=== PATIENT | female | born 1975 | race Two or more races ===

== ENCOUNTER 2019-01-13 12:51 | Outpatient (CLI) | payer OTHER ==
[~2019-01-13 12:51] MED LIST: RELPAX20 MG PO
== END 2019-01-13 13:02 | disposition home or self-care (01) ==
LOC: RAD 12:51
DX: M25.561 Pain in right knee (principal); M25.562 Pain in left knee

== ENCOUNTER → 2019-04-04 | Day surgery (SDC) | payer OTHER ==
[~2019-04-04] MED LIST changes: +CYMBALTA60 MG PO; +LASIX20 MG PO; +MOTRIN IB200 MG PO; +PROSOM; +TAMOXIFEN CITRA20 MG PO; +ZANAFLEX4 MG PO
== END | disposition home or self-care (01) ==
LOC: ADM 04-03 08:00 → CIR.AMB 06:59
PROVIDERS: Plastic Surgery; Surgery
PROC: 0HBV0ZZ Excision of Bilateral Breast, Open Approach (ICD-10-PCS; 2019-04-04)
PROC: 0HBT0ZZ Excision of Right Breast, Open Approach (ICD-10-PCS; principal; 2019-04-04 07:00)
PROC: 07B50ZZ Excision of Right Axillary Lymphatic, Open Approach (ICD-10-PCS; 2019-04-04 07:00)
DX: C50.411 Malignant neoplasm of upper-outer quadrant of right female breast (principal); N62 Hypertrophy of breast

== ENCOUNTER 2019-05-15 16:28 | Emergency (ER) | payer OTHER ==
[~2019-05-15] VITALS: Ht 160 cm; Wt 129.3 kg
[2019-05-15] MEDS ORDERED: ATIVAN1 M1 (17:10)
[2019-05-15] MEDS ORDERED: ELABIL (17:10)
== END 2019-05-15 18:09 | disposition home or self-care (01) ==
LOC: ER 16:28
DX: S20.212A Contusion of left front wall of thorax, initial encounter (principal); S20.211A Contusion of right front wall of thorax, initial encounter; S80.02XA Contusion of left knee, initial encounter; S80.01XA Contusion of right knee, initial encounter; M79.18 Myalgia, other site; V49.9XXA Car occupant (driver) (passenger) injured in unspecified traffic accident, initial encounter; Y93.89 Activity, other specified; Y92.488 Other paved roadways as the place of occurrence of the external cause; Y99.8 Other external cause status

== ENCOUNTER 2019-11-13 13:30 | Inpatient (IN) | payer OTHER ==
[~2019-11-13] VITALS: Ht 160 cm; Wt 126.6 kg
[~2019-11-13 13:30] MED LIST changes: +ATIVAN1 M1; +ELABIL
== END 2019-11-15 15:41 | disposition home or self-care (01) | DRG 621 ==
LOC: SURH 13:30 → O/R 11-14 08:50 → SURH 11-14 08:50 → SURG 11-14 18:51 → SURH 11-14 19:46
PROVIDERS: ADMIT Plastic Surgery
PROC: 0J080ZZ Alteration of Abdomen Subcutaneous Tissue and Fascia, Open Approach (ICD-10-PCS; principal; 2019-11-14 11:00)
DX: E65 Localized adiposity (principal); E66.01 Morbid (severe) obesity due to excess calories

== ENCOUNTER 2020-12-28 15:54 | Emergency (ER) | payer OTHER ==
[~2020-12-28] VITALS: Ht 160 cm; Wt 131.5 kg
== END 2020-12-28 22:35 | disposition home or self-care (01) ==
LOC: ER 15:54
DX: N39.0 Urinary tract infection, site not specified (principal); R10.31 Right lower quadrant pain; E66.01 Morbid (severe) obesity due to excess calories

== ENCOUNTER 2021-04-13 09:37 | Emergency (ER) | payer OTHER ==
[~2021-04-13] VITALS: Ht 160 cm; Wt 132.0 kg
[2021-04-13] MEDS ORDERED: KETO10TA2 PO (15:45)
[2021-04-13] MEDS ORDERED: NORFLEX100MG PO (15:45)
== END 2021-04-13 16:29 | disposition home or self-care (01) ==
LOC: ER 09:37
DX: S30.0XXA Contusion of lower back and pelvis, initial encounter (principal); S90.01XA Contusion of right ankle, initial encounter; S70.01XA Contusion of right hip, initial encounter; W18.39XA Other fall on same level, initial encounter; Y93.89 Activity, other specified; Y92.89 Other specified places as the place of occurrence of the external cause; Y99.8 Other external cause status

== ENCOUNTER 2021-12-19 06:51 | Day surgery (SDC) | payer OTHER ==
[~2021-12-19 06:51] MED LIST changes: +KETO10TA2 PO; +NORFLEX100MG PO
== END 2021-12-19 11:25 | disposition home or self-care (01) ==
LOC: AMB-ENDOS 06:51
PROVIDERS: ATTEND Surgery
DX: K92.2 Gastrointestinal hemorrhage, unspecified (principal); K64.8 Other hemorrhoids; Z20.822 Contact with and (suspected) exposure to COVID-19